=== PATIENT | female | born 1980 | race American Indian/Alaskan Native ===

== ENCOUNTER 2023-08-29 05:00 | Day surgery (SDC) | payer OTHER ==
[2023-08-27 12:52] LABS: URINE APPEARANCE Clear; URINE BILIRRUBIN Negative (NEGATIVE); URINE BLOOD Trace; URINE COLOR Yellow; URINE GLUCOSE Negative (NEGATIVE); URINE LEUKOCYTE Negative; URINE NITRATE Negative; URINE PROTEIN Negative (NEGATIVE); URINE UROBILINOGEN 0.2 E.U./dl
[2023-08-27 12:55] LABS: URINE BACTERIA 17.6 uL (0.0-1933); URINE EPITHELIAL CELLS 4.6 uL (0.0-38.8)
[2023-08-27 13:07] LABS: HEMATOCRIT 42.8 % (36.0-45.00); MEAN CELL VOLUME 100.6 fL (80.00-100.00); MEAN CORPUSCULAR HEMOGLOBIN 32.8 pg (27.00-32.0); MEAN CORPUSCULAR HGB CONC 32.6 g/dl (32.0-36.0); PLATELET COUNT 159 K/uL (150-450); RED BLOOD COUNT 4.26 M/uL (4.00-6.00); RED CELL DISTRIBUTION WIDTH 13.7 % (11.5-14.5)
[2023-08-27 13:14] LABS: URINE WBC 1.2 uL (0.0-23.2)
[2023-08-27 13:30] LABS: INR < 0.93; PARTIAL THROMBOPLASTIN TIME 26.5 SECONDS (22.0-34.0); PROTHROMBIN TIME 9.5 SECONDS (9.0-11.5)
[2023-08-27 13:48] LABS: ALBUMIN 3.8 gm/dL (3.4-5.0); CALCIUM 9.1 mg/dL (8.5-10.1); CREATININE SERUM 0.54 mg/dL (0.55-1.02); GFR 123.81; PHOSPHOROUS 3.2 mg/dL (2.5-4.9); POTASSIUM 3.92 mEq/L (3.5-5.1)
[~2023-08-29] VITALS: Ht 160 cm; Wt 70.3 kg
[~2023-08-29 05:00] MED LIST: ORPH100T PO; PERCOCET 5/3251 TAB PO; XANAX0.25 MG PO
[2023-08-29] MEDS ORDERED: CEPHALEXIN500 M1 PO (10:41)
[2023-08-29] MEDS ORDERED: CIPROFLOXACIN2.5 ML OTIC (10:41)
== END 2023-08-29 15:20 | disposition home or self-care (01) ==
LOC: CIR.AMB 05:00
PROVIDERS: ATTEND Otolaryngology Otology & Neurotology
DX: H72.02 Central perforation of tympanic membrane, left ear (principal); H70.12 Chronic mastoiditis, left ear

== ENCOUNTER → 2024-12-14 | Outpatient (CLI) | payer OTHER ==
[~2024-12-14] MED LIST changes: +CEPHALEXIN500 M1 PO; +CIPROFLOXACIN2.5 ML OTIC
== END | disposition home or self-care (01) ==
LOC: MAMO-SONO 11:20
PROVIDERS: ATTEND Medical Genetics, Ph.D. Medical Genetics
DX: N64.4 Mastodynia (principal); Z12.31 Encounter for screening mammogram for malignant neoplasm of breast

== ENCOUNTER → 2025-07-25 10:23 | Outpatient (CLI) | payer OTHER | END | disposition home or self-care (01) | LOC: EKG 10:23 | PROVIDERS: ATTEND Medical Genetics, Ph.D. Medical Genetics | DX: R00.2 Palpitations (principal) ==